=== PATIENT | female | born 1990 | race American Indian/Alaskan Native ===

== ENCOUNTER 2020-12-13 20:45 | Emergency (ER) | payer OTHER ==
[~2020-12-13 20:45] MED LIST: MIRALAX17 GM PO; NORCO 325 MG-51 TA1 PO; PHENERGAN 25 TA25 MG PO
[2020-12-13 21:25] LABS: BASO # 0.03 (0.02-0.10); EOS # 0.06 (0.04-0.40); EOS % 0.6 % (1.0-5.0); HEMATOCRIT 42.2 % (37.0-47.0); HEMOGLOBIN 13.7 g/dL (12.5-16.0); LYMPH# 1.92 (1.50-4.00); MEAN CELL VOLUME 79 fl (78-100); MEAN CORPUSCULAR HEMOGLOBIN 26 pg (27-31); MEAN CORPUSCULAR HGB CONC 33 g/dL (33-37); MEAN PLATELET VOLUME 10.3 fl (7.4-10.4); MONO # 0.51 (0.20-0.80); NEU # 8.07 (1.40-6.50); PLATELET COUNT 291 K/mm3 (130-400); RED BLOOD COUNT 5.36 M/mm3 (4.10-5.30); RED CELL DISTRIBUTION WIDTH 14.6 % (11.5-14.5); WHITE BLOOD COUNT 10.6 K/mm3 (4.8-10.8)
[2020-12-13 21:34] LABS: ALBUMIN 4.6 g/dL (3.5-5.0)
[2020-12-13 21:35] LABS: POTASSIUM 3.3 mmol/L (3.5-5.1)
[2020-12-13 21:36] LABS: CALCIUM 10.1 mg/dL (8.3-10.5)
[2020-12-13 21:37] LABS: TOTAL PROTEIN 8.9 g/dL (6.4-8.3)
[2020-12-13 21:39] LABS: TOTAL BILIRUBIN 0.2 mg/dL (0.2-1.2)
[2020-12-13 21:42] LABS: PH-URINE 8.5 (5.0 - 8.0); URINE APPEARANCE CLOUDY; URINE BILIRUBIN NEGATIVE (NEGATIVE); URINE BLOOD TRACE (NEGATIVE); URINE COLOR YELLOW; URINE GLUCOSE NEGATIVE (NEGATIVE); URINE KETONE NEGATIVE (NEGATIVE); URINE LEUKOCYTE ESTERASE 2+ (NEGATIVE); URINE NITRATE NEGATIVE (NEGATIVE); URINE PROTEIN(semi-quant) NEGATIVE (NEGATIVE); URINE UROBILINOGEN NORMAL (NORMAL); URINE WBC 16-30 /hpf (0-3)
[2020-12-14 09:38] VITALS: BP 161/115
== END 2020-12-14 08:50 | disposition short-term general hospital (02) ==
LOC: ED 20:45
PROVIDERS: Nurse Practitioner Family
DX: K81.0 Acute cholecystitis (principal); O16.5 Unspecified maternal hypertension, complicating the puerperium
CPT/HCPCS: J1885; J2543; J7030; Q9967

== ENCOUNTER → 2021-02-06 | Outpatient (CLI) | payer OTHER ==
[~2021-02-06] MED LIST changes: +ONE DAILY WOME1 EACH PO; +PROAIR HFA0.09 MG/AC IH; +ZITHROMAX500 M2 PO
[2021-02-06 10:53] LABS: BASO # 0.01 (0.02-0.10); EOS # 0.07 (0.04-0.40); EOS % 1.1 % (1.0-5.0); HEMATOCRIT 39.3 % (37.0-47.0); HEMOGLOBIN 12.5 g/dL (12.5-16.0); LYMPH# 1.96 (1.50-4.00); MEAN CELL VOLUME 82 fl (78-100); MEAN CORPUSCULAR HEMOGLOBIN 26 pg (27-31); MEAN CORPUSCULAR HGB CONC 32 g/dL (33-37); MEAN PLATELET VOLUME 10.3 fl (7.4-10.4); MONO # 0.42 (0.20-0.80); NEU # 3.63 (1.40-6.50); PLATELET COUNT 273 K/mm3 (130-400); RED BLOOD COUNT 4.78 M/mm3 (4.10-5.30); RED CELL DISTRIBUTION WIDTH 13.6 % (11.5-14.5); WHITE BLOOD COUNT 6.1 K/mm3 (4.8-10.8)
[2021-02-06 11:11] LABS: ALBUMIN 4.2 g/dL (3.5-5.0); POTASSIUM 3.7 mmol/L (3.5-5.1)
[2021-02-06 11:12] LABS: CALCIUM 9.5 mg/dL (8.3-10.5)
[2021-02-06 11:14] LABS: TOTAL PROTEIN 8.2 g/dL (6.4-8.3)
[2021-02-06 11:15] LABS: TOTAL BILIRUBIN 0.3 mg/dL (0.2-1.2)
== END ==
LOC: LAB 10:36
PROVIDERS: Physician Assistant
DX: R63.5 Abnormal weight gain (principal); R03.0 Elevated blood-pressure reading, without diagnosis of hypertension; Z83.49 Family history of other endocrine, nutritional and metabolic diseases; Z13.29 Encounter for screening for other suspected endocrine disorder

== ENCOUNTER 2021-03-06 10:33 | Emergency (ER) | payer OTHER ==
[~2021-03-06] VITALS: Ht 157.5 cm; Wt 77.7 kg
[~2021-03-06 10:33] MED LIST changes: -ONE DAILY WOME1 EACH PO; -PROAIR HFA0.09 MG/AC IH; -ZITHROMAX500 M2 PO
[2021-03-06] MEDS ORDERED: ONE DAILY WOME1 EACH PO (10:45)
[2021-03-06 11:04] LABS: HEMATOCRIT 43.4 % (37.0-47.0); HEMOGLOBIN 13.6 g/dL (12.5-16.0); LYMPH# 1.28 (1.50-4.00); MEAN CELL VOLUME 84 fl (78-100); MEAN CORPUSCULAR HEMOGLOBIN 26 pg (27-31); MEAN CORPUSCULAR HGB CONC 31 g/dL (33-37); MEAN PLATELET VOLUME 10.3 fl (7.4-10.4); MONO # 0.21 (0.20-0.80); NEU # 1.63 (1.40-6.50); PLATELET COUNT 155 K/mm3 (130-400); RED BLOOD COUNT 5.17 M/mm3 (4.10-5.30); RED CELL DISTRIBUTION WIDTH 13.1 % (11.5-14.5); WHITE BLOOD COUNT 3.1 K/mm3 (4.8-10.8)
[2021-03-06 11:13] LABS: ALBUMIN 4.2 g/dL (3.5-5.0); POTASSIUM 3.5 mmol/L (3.5-5.1)
[2021-03-06 11:14] LABS: CALCIUM 9.6 mg/dL (8.3-10.5)
[2021-03-06 11:15] LABS: TOTAL PROTEIN 8.4 g/dL (6.4-8.3)
[2021-03-06 11:17] LABS: TOTAL BILIRUBIN 0.2 mg/dL (0.2-1.2)
[2021-03-06 12:50] LABS: D-DIMER 0.55 mg/L FEU (0.15-0.50)
[2021-03-06] MEDS ORDERED: ZITHROMAX500 M2 PO (13:00)
[2021-03-06] MEDS ORDERED: PROAIR HFA0.09 MG/AC IH (13:00)
[2021-03-06 13:10] VITALS: BP 148/103
== END 2021-03-06 13:19 | disposition home or self-care (01) ==
LOC: ED 10:33
PROVIDERS: Physician Assistant
DX: U07.1 COVID-19 (principal); I10 Essential (primary) hypertension
CPT/HCPCS: J0696

== ENCOUNTER → 2023-06-19 | Outpatient (CLI) | payer OTHER ==
[~2023-06-19] MED LIST changes: +ONE DAILY WOME1 EACH PO; +PROAIR HFA0.09 MG/AC IH; +ZITHROMAX500 M2 PO
[2023-06-19 15:10] LABS: BASO # 0.02 K/mm3 (0.02-0.10); EOS # 0.08 K/mm3 (0.04-0.40); EOS % 1.1 % (1.0-5.0); HEMATOCRIT 41.3 % (37.0-47.0); HEMOGLOBIN 13.4 g/dL (12.5-16.0); LYMPH# 2.51 K/mm3 (1.50-4.00); MEAN CELL VOLUME 81 fl (78-100); MEAN CORPUSCULAR HEMOGLOBIN 26 pg (27-31); MEAN CORPUSCULAR HGB CONC 32 g/dL (33-37); MEAN PLATELET VOLUME 9.3 fl (7.4-10.4); MONO # 0.41 K/mm3 (0.20-0.80); NEU # 3.94 K/mm3 (1.40-6.50); PLATELET COUNT 300 K/mm3 (130-400); RED BLOOD COUNT 5.08 M/mm3 (4.10-5.30); RED CELL DISTRIBUTION WIDTH 13.7 % (11.5-14.5)
[2023-06-19 15:56] LABS: ALBUMIN 4.5 g/dL (3.5-5.0)
[2023-06-19 15:57] LABS: CALCIUM 10.4 mg/dL (8.3-10.5)
[2023-06-19 15:58] LABS: TOTAL PROTEIN 8.8 g/dL (6.4-8.3)
[2023-06-19 16:00] LABS: TOTAL BILIRUBIN 0.2 mg/dL (0.2-1.2)
== END ==
LOC: LAB 14:45
PROVIDERS: Physician Assistant
DX: Z00.00 Encounter for general adult medical examination without abnormal findings (principal); Z13.220 Encounter for screening for lipoid disorders; Z13.1 Encounter for screening for diabetes mellitus; O24.419 Gestational diabetes mellitus in pregnancy, unspecified control; I10 Essential (primary) hypertension; R00.2 Palpitations; R23.2 Flushing; R53.83 Other fatigue; D64.9 Anemia, unspecified; K90.9 Intestinal malabsorption, unspecified